=== PATIENT | female | born 1980 | race Caucasian/White ===

== ENCOUNTER 2017-10-01 17:54 | Emergency (ER) | payer MEDICAID ==
[2017-10-01 19:56] LABS: URINE BLOOD (Dip) POC Negative (NEGATIVE); URINE GLUCOSE (Dip) POC Negative (NEGATIVE); URINE KETONES (Dip) POC Negative (NEGATIVE); URINE LEUKOCYTE EST (Dip) POC 1+ (NEGATIVE); URINE NITRITE (Dip) POC Negative (NEGATIVE); URINE TOTAL PROTEIN POC Trace (NEGATIVE)
[2017-10-01] MEDS: ONDANSETRON 4 MG INJ IV (19:58)
[2017-10-01] MEDS: LIDOCAINE/MYLANTA 40 ML BTL PO (19:58)
[2017-10-01] MEDS: PANTOPRAZOLE 40 MG INJ IV (19:58)
[2017-10-01] MEDS: SOD CHLORIDE 0.9% 1,000 ML IV (19:58)
[2017-10-01] MEDS: KETOROLAC 15 MG INJ IV (19:59)
[2017-10-01 20:16] LABS: ADD MAN DIFF? NO
[2017-10-01 20:23] LABS: ABNORMAL IP MESSAGE 1; BASOPHILS % 0.2 % (0.0-2.0); EOSINOPHILS % 0.2 % (0.0-7.0); HEMATOCRIT 42.7 % (37.0-47.0); HEMOGLOBIN 14.1 g/dl (12.0-16.0); LYMPHOCYTES # 0.7 10^3/ul (0.8-2.9); LYMPHOCYTES % 5.4 % (15.0-51.0); MEAN CORPUSCULAR HEMOGLOBIN 27.2 pg (29.0-33.0); MEAN CORPUSCULAR VOLUME 82.3 fl (82.0-101.0); MEAN PLATELET VOLUME 13.3 fl (7.4-10.4); MONOCYTE # 0.6 10^3/ul (0.3-0.9); MONOCYTES % 4.3 % (0.0-11.0); NEUTROPHIL # 11.4 10^3/ul (1.6-7.5); NEUTROPHILS % 89.5 % (39.0-77.0); PLATELET COUNT 241 10^3/UL (140-415); RED BLOOD COUNT 5.19 10^6/ul (4.20-5.40); RED CELL DISTRIBUTION WIDTH 13.3 % (11.5-14.5)
[2017-10-01 20:23] LABS: WHITE BLOOD COUNT 12.7 10^3/ul (4.8-10.8)
[2017-10-01 20:33] LABS: ADD UMIC YES; POSITIVE DIFF @See below; UR ASCORBIC ACID NEGATIVE (NEGATIVE); UR BACTERIA FEW /HPF (NONE SEEN); UR BILIRUBIN (Dip) NEGATIVE (NEGATIVE); UR BLOOD (Dip) NEGATIVE (NEGATIVE); UR CLARITY SLIGHTLY CLOUDY (CLEAR); UR COLOR YELLOW (YELLOW); UR GLUCOSE (Dip) NEGATIVE (NEGATIVE); UR KETONES (Dip) NEGATIVE (NEGATIVE); UR LEUKOCYTE ESTERASE (Dip) 2+ Leu/ul (NEGATIVE); UR NITRITE (Dip) NEGATIVE (NEGATIVE); UR RBC 3 /HPF (0-5); UR SPECIFIC GRAVITY (Dip) 1.016 (1.003-1.030); UR SQUAMOUS EPITHELIAL CELL FEW /HPF (FEW); UR TOTAL PROTEIN (Dip) NEGATIVE (NEGATIVE); UR UROBILINOGEN (Dip) NEGATIVE (NEGATIVE); UR WBC 4 /HPF (0-5)
[2017-10-01 20:36] LABS: ALANINE AMINOTRANSFERASE 621 IU/L (13-69); ALBUMIN 4.6 g/dl (3.3-4.9); ALBUMIN/GLOBULIN RATIO 1.15; ALKALINE PHOSPHATASE 182 IU/L (42-121); ANION GAP 19 (8-16); BILIRUBIN,INDIRECT 0.6 mg/dl (0-1.1); BILIRUBIN,TOTAL 0.6 mg/dl (0.2-1.3); BLOOD UREA NITROGEN 23 mg/dl (7-20); CALCIUM 9.6 mg/dl (8.4-10.2); CARBON DIOXIDE 28 mmol/L (21-31); CHLORIDE 101 mmol/L (97-110); CREATININE 0.84 mg/dl (0.44-1.00); GLUCOSE 149 mg/dl (70-220); LIPASE 93 U/L (23-300); SODIUM 144 mmol/L (135-144); TOTAL PROTEIN 8.6 g/dl (6.1-8.1)
[2017-10-01 20:42] LABS: ASPARTATE AMINO TRANSFERASE 1057 IU/L (15-46)
[2017-10-01] MEDS: CEPHALEXIN 500 MG CAP PO (23:40)
== END 2017-10-01 23:58 | disposition home or self-care (01) ==
LOC: FTE 17:54
DX: N30.01 Acute cystitis with hematuria (principal); R74.0 Nonspecific elevation of levels of transaminase and lactic acid dehydrogenase [LDH]; R10.2 Pelvic and perineal pain
CPT/HCPCS: 36415; 74176; 80053; 81001; 81003; 81025; 83690; 85025; 96374; 96375; 99285-25

== ENCOUNTER 2017-10-28 10:46 | Emergency (ER) | payer MEDICAID | END 2017-10-28 11:11 | disposition home or self-care (01) | LOC: E/R 10:46 | DX: J06.9 Acute upper respiratory infection, unspecified (principal); R59.0 Localized enlarged lymph nodes | CPT/HCPCS: 99283; Z7502 ==

== ENCOUNTER 2018-07-08 15:07 | Emergency (ER) | payer MEDICAID | END 2018-07-08 16:52 | disposition home or self-care (01) | LOC: FTE 15:07 | DX: M79.602 Pain in left arm (principal) | CPT/HCPCS: 73080; 73080-LT; 99283-25 ==

== ENCOUNTER 2019-03-07 00:32 | Emergency (ER) | payer MEDICAID ==
[2019-03-07] MEDS: FAMOTIDINE 20 MG TAB PO (03:21)
[2019-03-07] MEDS: LIDOCAINE/MYLANTA 40 ML BTL PO (03:21)
[2019-03-07 03:41] LABS: ADD MAN DIFF? NO
[2019-03-07 03:56] LABS: ADD UMIC YES; UR ASCORBIC ACID NEGATIVE (NEGATIVE); UR BILIRUBIN (Dip) NEGATIVE (NEGATIVE); UR BLOOD (Dip) 1+ mg/dL (NEGATIVE); UR CLARITY SLIGHTLY CLOUDY (CLEAR); UR COLOR YELLOW (YELLOW); UR GLUCOSE (Dip) NEGATIVE (NEGATIVE); UR KETONES (Dip) NEGATIVE (NEGATIVE); UR LEUKOCYTE ESTERASE (Dip) NEGATIVE Leu/ul (NEGATIVE); UR NITRITE (Dip) NEGATIVE (NEGATIVE); UR RBC 1 /HPF (0-5); UR SPECIFIC GRAVITY (Dip) 1.015 (1.003-1.030); UR SQUAMOUS EPITHELIAL CELL FEW /HPF (FEW); UR TOTAL PROTEIN (Dip) NEGATIVE (NEGATIVE); UR UROBILINOGEN (Dip) NEGATIVE (NEGATIVE); UR WBC 4 /HPF (0-5)
[2019-03-07 04:05] LABS: BASOPHILS % 0.3 % (0.0-2.0); EOSINOPHILS % 0.1 % (0.0-7.0); HEMATOCRIT 42.6 % (37.0-47.0); HEMOGLOBIN 13.9 g/dl (12.0-16.0); LYMPHOCYTES # 1.9 10^3/ul (0.8-2.9); LYMPHOCYTES % 12.4 % (15.0-51.0); MEAN CORPUSCULAR HEMOGLOBIN 27.5 pg (29.0-33.0); MEAN CORPUSCULAR HGB CONC 32.6 g/dl (32.0-37.0); MEAN CORPUSCULAR VOLUME 84.2 fl (82.0-101.0); MEAN PLATELET VOLUME 12.3 fl (7.4-10.4); MONOCYTE # 0.7 10^3/ul (0.3-0.9); MONOCYTES % 4.9 % (0.0-11.0); NEUTROPHIL # 12.2 10^3/ul (1.6-7.5); NEUTROPHILS % 81.3 % (39.0-77.0); PLATELET COUNT 268 10^3/UL (140-415); RED BLOOD COUNT 5.06 10^6/ul (4.20-5.40); RED CELL DISTRIBUTION WIDTH 14.1 % (11.5-14.5)
[2019-03-07 04:06] LABS: ALANINE AMINOTRANSFERASE 63 IU/L (13-69); ALBUMIN 4.5 g/dl (3.3-4.9); ALBUMIN/GLOBULIN RATIO 1.09; ALKALINE PHOSPHATASE 88 IU/L (42-121); ANION GAP 13 (5-13); ASPARTATE AMINO TRANSFERASE 109 IU/L (15-46); BILIRUBIN,INDIRECT 0.2 mg/dl (0-1.1); BILIRUBIN,TOTAL 0.2 mg/dl (0.2-1.3); BLOOD UREA NITROGEN 15 mg/dl (7-20); CALCIUM 9.5 mg/dl (8.4-10.2); CARBON DIOXIDE 21 mmol/L (21-31); CHLORIDE 108 mmol/L (97-110); Estimated GFR > 60 mL/min (>60); GLUCOSE 138 mg/dl (70-220); LIPASE 118 U/L (23-300); POTASSIUM 4.2 mmol/L (3.5-5.1); SODIUM 142 mmol/L (135-144); TOTAL PROTEIN 8.6 g/dl (6.1-8.1)
== END 2019-03-07 05:14 | disposition home or self-care (01) ==
LOC: E/R 00:32
DX: R10.13 Epigastric pain (principal)
CPT/HCPCS: 36415; 80053; 81001; 83690; 84703; 85025; 99283